=== PATIENT | female | born 1975 ===

== ENCOUNTER 2017-10-01 13:13 | Outpatient (CLI) | payer MEDICAID ==
--- NOTE | 2017-10-04 15:32 | Mammography Report ---
BILATERAL DIGITAL DIAGNOSTIC MAMMOGRAM with CAD and BILATERAL BREAST ULTRASOUND: 10/01/17 CLINICAL: Bilateral breast pain. Note that initial images were done on 10/01/17 and she returned for a few additional views of the right breast on 10/04/17. COMPARISON:None. FINDINGS: The breasts are heterogeneously dense, which may obscure small masses. Bilateral asymmetries demonstrate satisfactory effacement with spot compression. Lateral views are negative. No mass, architectural distortion or suspicious calcifications. Ultrasound of the right breast (including all four quadrants and the retroareolar area) was performed and demonstrated no solid mass or shadowing. A single subareolar cyst at 12 o'clock measures 6 x 2 x 5 mm. No other cyst identified. Ultrasound of the left breast (including all four quadrants and the retroareolar area) was performed and demonstrated a single benign cyst at 10 o'clock 9 cm from the nipple measuring 7 x 3 x 8 mm. No solid mass or shadowing. IMPRESSION: Small bilateral benign cysts and otherwise negative. BI-RADS CATEGORY: 2 -- Benign RECOMMENDATION: Clinical followup and routine and mammographic screening in one year. COMMENT: Patient follow-up letters are generated by our [employer] application.
== END 2017-10-01 13:14 | disposition home or self-care (01) ==
LOC: SPVWC 13:13
PROVIDERS: ATTEND Family Medicine
DX: N60.02 Solitary cyst of left breast (principal); N60.01 Solitary cyst of right breast; N64.4 Mastodynia
CPT/HCPCS: 77066